=== PATIENT | female | born 1975 | race Caucasian/White ===

== ENCOUNTER 2022-05-14 04:21 | Day surgery (SDC) | payer OTHER ==
[2022-05-09 12:26] VITALS: BMI 24.3
[2022-05-14 08:59] VITALS: TEMP 98
[2022-05-14 09:21] VITALS: RESP 12
[2022-05-14 09:33] VITALS: BP 105/69; PULSE 60
== END 2022-05-14 09:26 | disposition home or self-care (01) ==
LOC: JASU-ENDO 04:21
PROVIDERS: ATTEND Internal Medicine
PROC: 0DB68ZX Excision of Stomach, Via Natural or Artificial Opening Endoscopic, Diagnostic (ICD-10-PCS; 2022-05-14)
PROC: 0DB48ZX Excision of Esophagogastric Junction, Via Natural or Artificial Opening Endoscopic, Diagnostic (ICD-10-PCS; principal; 2022-05-14 08:30)
DX: K21.00 Gastro-esophageal reflux disease with esophagitis, without bleeding (principal); K31.89 Other diseases of stomach and duodenum; K21.9 Gastro-esophageal reflux disease without esophagitis
CPT/HCPCS: 81025; 88305-TC; 88342-TC

== ENCOUNTER 2023-12-25 09:59 | Day surgery (SDC) | payer OTHER ==
[2023-12-24 13:22] VITALS: BMI 26.6
[2023-12-25 10:21] VITALS: TEMP 97.3
[2023-12-25 12:11] VITALS: BP 104/62; PULSE 68; RESP 19
== END 2023-12-25 11:40 | disposition home or self-care (01) ==
LOC: FASU-ENDO 09:59
PROVIDERS: ATTEND Internal Medicine Gastroenterology
PROC: 0DB98ZX Excision of Duodenum, Via Natural or Artificial Opening Endoscopic, Diagnostic (ICD-10-PCS; 2023-12-25)
PROC: 0DB68ZX Excision of Stomach, Via Natural or Artificial Opening Endoscopic, Diagnostic (ICD-10-PCS; 2023-12-25)
PROC: 0DB48ZX Excision of Esophagogastric Junction, Via Natural or Artificial Opening Endoscopic, Diagnostic (ICD-10-PCS; 2023-12-25)
PROC: 0DBN8ZX Excision of Sigmoid Colon, Via Natural or Artificial Opening Endoscopic, Diagnostic (ICD-10-PCS; principal; 2023-12-25 10:44)
DX: Z12.11 Encounter for screening for malignant neoplasm of colon (principal); Z80.0 Family history of malignant neoplasm of digestive organs; Z83.719 Family history of colon polyps, unspecified; K64.1 Second degree hemorrhoids; K31.9 Disease of stomach and duodenum, unspecified; K22.89 Other specified disease of esophagus; R10.13 Epigastric pain
CPT/HCPCS: 81025; 88305-TC; 88342-TC